=== PATIENT | male | born 1985 | race Caucasian/White ===

== ENCOUNTER 2022-02-22 11:20 | Emergency (ER) | payer MEDICAID ==
[~2022-02-22] VITALS: Ht 160 cm; Wt 81.6 kg
[2022-02-22 11:27] VITALS: BP_SYST 113
--- NOTE | 2022-02-22 11:30 | NUR ---
Patient triaged and placed in waiting room. VSS and patient appears in no acute distress at this time. Accompanied by self , awaiting available bed, and MD notified of need for MSE.
--- NOTE | 2022-02-22 11:35 | NUR ---
Pt brought by ambulance, A&Ox4, pt presents to ER for recent blockage on nephrostomy tube, per staff tube was blocked last night but unclogged this morning , per patient he denies any pain and noticed urine is flowing, no blood noted, pt VSS, respirations even and unlabored, cap refill <3, will cont to monitor.
--- NOTE | 2022-02-22 11:50 | NUR ---
Dr Santos evaluating patient at bedside
--- NOTE | 2022-02-22 12:34 | NUR ---
Patient given written and verbal discharge instructions and verbalizes understanding. ER MD discussed with patient the results and treatment provided. Patient in stable condition. ID arm band removed. No Rx given. Patient educated on pain management and to follow up with PMD. Pain Scale 0/10. Opportunity for questions provided and answered. Medication side effect fact sheet provided.
== END 2022-02-22 12:34 | disposition home or self-care (01) ==
LOC: SED 11:20
DX: Z43.6 Encounter for attention to other artificial openings of urinary tract (principal)
CPT/HCPCS: 99283